=== PATIENT | female | born 1995 | race African-American/Black ===

== ENCOUNTER 2016-09-07 10:25 | Emergency (ER) | payer MEDICAID ==
[~2016-09-07] VITALS: Ht 165.1 cm; Wt 63.0 kg
[2016-09-07 11:41] LABS: BASOPHILS % 0.8 % (0.0-2.0); EOSINOPHILS % 1.9 % (0.0-5.0); HEMATOCRIT. 39.2 % (36.0-48.0); HEMOGLOBIN. 13.2 g/dL (12.0-16.0); MEAN CORPUSCULAR HEMOGLOBIN 28.6 pg (28.0-32.0); MEAN PLATELET VOLUME 7.5 fl (7.4-10.4); NEUTROPHILS % 65.3 % (40.0-76.0); PLATELET 277 x1000/uL (130-400); RED BLOOD CELL COUNT 4.61 mill/uL (4.2-5.4); RED CELL DISTRIBUTION WIDTH 14.3 % (11.6-14.6)
[2016-09-07 11:48] LABS: CHLORIDE 106 mEq/L (98-107)
[2016-09-07 11:58] LABS: B-HCG QUANTITATIVE 838 mIU/mL (<3); CARBON DIOXIDE 26 mEq/L (21-32)
[2016-09-07 13:35] VITALS: BP 126/80
== END 2016-09-07 13:45 | disposition home or self-care (01) ==
LOC: ER 11:01
DX: O46.91 Antepartum hemorrhage, unspecified, first trimester (principal); Z3A.01 Less than 8 weeks gestation of pregnancy
CPT/HCPCS: 36415; 76801; 76817; 80048; 81025; 84702; 85025; 86850; 86900; 86901; 99285; Z7610

== ENCOUNTER 2017-08-09 10:01 | Emergency (ER) | payer MEDICAID ==
[~2017-08-09] VITALS: Ht 157.5 cm; Wt 77.4 kg
[2017-08-09 11:10] VITALS: BP 117/78
== END 2017-08-09 11:20 | disposition home or self-care (01) ==
LOC: ER 10:47
DX: S60.455A Superficial foreign body of left ring finger, initial encounter (principal); X58.XXXA Exposure to other specified factors, initial encounter; Y93.89 Activity, other specified; Y92.89 Other specified places as the place of occurrence of the external cause; Y99.8 Other external cause status
CPT/HCPCS: 99284